=== PATIENT | female | born 1990 | race Two or more races ===

== ENCOUNTER 2024-10-22 18:55 | Emergency (ER) | payer OTHER ==
[~2024-10-22] VITALS: Ht 157.5 cm; Wt 64.4 kg
[2024-10-22 19:10] VITALS: BP 107/67
[2024-10-22] MEDS ORDERED: CLIN-118 PO (22:07)
[2024-10-22 22:16] VITALS: BP 107/67; O2SAT 98
== END 2024-10-22 22:17 | disposition home or self-care (01) ==
LOC: ER 19:06
DX: L02.416 Cutaneous abscess of left lower limb (principal); Z60.2 Problems related to living alone; Z59.00 Homelessness unspecified
CPT/HCPCS: 76881; A4606; A4663